=== PATIENT | female | born 1935 | race Caucasian/White ===

== ENCOUNTER → 2018-03-31 | Outpatient (CLI) | payer MEDICARE, OTHER ==
[~2018-03-31] MED LIST: B12 PO; CALC-112 PO; CHOL100012 PO; CLOP75TA PO; DONE10TA14 PO; ESCI10TA10 PO; ESOM40CA PO; ESTRACE CREAM TP; FLUT15.88 NAS; FLUT1DIS3 INH; HYDR-3307 PO; LEVO5TAB29 PO; MIRA50TA PO; MOME17SP NAS; MULT-658 PO; OMEG1CAP23 PO; PANT40TA5 PO; REGADENOSON 0.4 MG/5 ML SYRINGE ONE; TIOT18CA INH; TRAV5DRO OP
== END ==
LOC: CFH 12:14
PROVIDERS: ATTEND Internal Medicine Cardiovascular Disease
DX: Z01.818 Encounter for other preprocedural examination (principal); I10 Essential (primary) hypertension
CPT/HCPCS: 78452; 93017; A9502; J2785

== ENCOUNTER → 2018-05-18 | Outpatient (CLI) | payer MEDICARE, OTHER ==
[~2018-05-18] MED LIST changes: +ASCO-96 PO; -REGADENOSON 0.4 MG/5 ML SYRINGE ONE; +ROSU5TAB PO; +VITA150T PO
[2018-05-18 12:03] LABS: MICROSCOPIC NOT IND
[2018-05-18 12:05] LABS: ANION GAP 4 mmol/L (5-15); CALCIUM 8.7 mg/dL (8.5-10.1); CHLORIDE 107 mmol/L (98-107); CREATININE 0.88 mg/dL (0.55-1.02)
[2018-05-18 12:07] LABS: BASOPHILS # (AUTO) 0.04 x10^3/uL (0-0.1); BASOPHILS % (AUTO) 1 % (0-1); EOSINOPHILS # (AUTO) 0.21 x10^3/uL (0-0.4); EOSINOPHILS % (AUTO) 3 % (1-7); LYMPHOCYTES # (AUTO) 1.37 x10^3/uL (1-3.4); LYMPHOCYTES % (AUTO) 22 % (22-44); MD NO; MEAN CORPUSCULAR HEMOGLOBIN 34.2 pg (27.0-34.8); MEAN CORPUSCULAR HGB CONC 33.9 g/dL (32.4-35.8); MEAN PLATELET VOLUME 8.7 fL (7.4-10.4); MONOCYTES # (AUTO) 0.57 x10^3/uL (0.2-0.8); MONOCYTES % (AUTO) 9 % (2-9); NEUTROPHILS # (AUTO) 4.08 x10^3/uL (1.8-6.8); NEUTROPHILS % (AUTO) 65 % (42-75); PLATELET COUNT 197 x10^3/uL (130-400); RED BLOOD COUNT 3.98 x10^6/uL (3.82-5.3); RED CELL DISTRIBUTION WIDTH 13.5 % (9.6-15.2)
[2018-05-18 12:28] LABS: CULTURE INDICATED? NO
== END | disposition home or self-care (01) ==
LOC: STAR 10:35
PROVIDERS: ATTEND Orthopaedic Surgery
DX: Z01.818 Encounter for other preprocedural examination (principal); M17.11 Unilateral primary osteoarthritis, right knee
CPT/HCPCS: 36415; 80048; 81003; 85025; 87081; 93005

== ENCOUNTER 2018-05-26 08:51 | Inpatient (IN) | payer MEDICARE, OTHER ==
[~2018-05-26] VITALS: Ht 154.9 cm; Wt 73.5 kg
[~2018-05-26 08:51] MED LIST changes: +FENTANYL PF 100 MCG/2ML ONE; +MIDAZOLAM 1 MG/ML, 2ML ONE
[2018-05-26] MEDS ORDERED: LACTATED RINGERS 1,000 ML IV SCH (09:45)
[2018-05-26] MEDS ORDERED: CLOP75TA52 PO (09:53)
[2018-05-26] MEDS ORDERED: LIDOCAINE-MPF 1%, 2ML INFIL ONE (10:00)
[2018-05-26] MEDS ORDERED: ACETAMINOPHEN 500 MG TABLET PO ONE (10:00)
[2018-05-26] MEDS ORDERED: ONDANSETRON ODT 8 MG PO ONE (10:00)
[2018-05-26] MEDS ORDERED: TAMSULOSIN 0.4 MG CAP.ER.24H PO ONE (10:00)
[2018-05-26] MEDS ORDERED: TRANEXAMIC ACID 100 MG/ML, 10ML ONE (10:42)
[2018-05-26] MEDS ORDERED: KETOROLAC 60 MG/2 ML ONE (10:42)
[2018-05-26] MEDS ORDERED: ROPIvacaine/PF 0.2%, 20 ML ONE (10:42)
[2018-05-26] MEDS ORDERED: EPINEPHRINE 1 MG/ML, 1ML ONE (10:43)
[2018-05-26] MEDS ORDERED: SODIUM CHLORIDE 0.9% 100 ML ONE (10:43)
[2018-05-26] MEDS ORDERED: VANCOMYCIN 1,000 MG ONE (10:43)
[2018-05-26] MEDS ORDERED: PREGABALIN 150 MG CAPSULE ONE (10:56)
[2018-05-26] MEDS ORDERED: PREGABALIN 150 MG CAPSULE PO ONE (11:00)
[2018-05-26] MEDS ORDERED: LABETALOL 5MG/ML 40ML VIAL ONE (11:16)
[2018-05-26] MEDS ORDERED: FENTANYL PF 100 MCG/2ML ONE ×2 (11:42→13:47)
[2018-05-26] MEDS ORDERED: LABETALOL 5MG/ML, 20ML IV PRN (12:00)
[2018-05-26] MEDS ORDERED: EPHEDRINE 50 MG/ML, 1ML IM PRN (12:00)
[2018-05-26] MEDS ORDERED: OXYcodone 5 MG/5 ML ORAL.SOL UDC PO PRN (12:00)
[2018-05-26] MEDS ORDERED: ALBUTEROL/IPRATROPIUM 2.5MG/0.5MG, 3 ML NPPB PRN (12:00)
[2018-05-26] MEDS ORDERED: PROMETHAZINE 25 MG/ML, 1ML IV PRN (12:00)
[2018-05-26] MEDS ORDERED: ONDANSETRON ODT 8 MG PO PRN (12:00)
[2018-05-26] MEDS ORDERED: MIDAZOLAM 1 MG/ML, 2ML IV PRN (12:00)
[2018-05-26] MEDS ORDERED: HYDROmorphone 1 MG/ML, 1ML IV PRN ×2 (12:00→13:00)
[2018-05-26] MEDS ORDERED: hydrALAzine 20 MG/ML, 1ML IV PRN (12:00)
[2018-05-26] MEDS ORDERED: FENTANYL PF 100 MCG/2ML IV PRN (12:00)
[2018-05-26] MEDS ORDERED: DEXAMETHASONE 4 MG/ML, 1ML ONE (12:10)
[2018-05-26] MEDS ORDERED: ROPIvacaine/PF 0.5%, 30 ML ONE (12:10)
[2018-05-26] MEDS ORDERED: CEFAZOLIN 1,000 MG ONE (12:10)
[2018-05-26] MEDS ORDERED: ONDANSETRON 2MG/ML, 2ML ONE (12:10)
[2018-05-26] MEDS ORDERED: BUPIVACAINE/PF 0.25% ONE (12:10)
[2018-05-26] MEDS ORDERED: PROPOFOL 10 MG/ML, 20ML ONE (12:10)
[2018-05-26] MEDS ORDERED: PROMETHAZINE 12.5 MG SUPP PR PRN (13:00)
[2018-05-26] MEDS ORDERED: PROMETHAZINE 25 MG/ML, 1ML IM PRN (13:00)
[2018-05-26] MEDS ORDERED: ONDANSETRON 4 MG TABLET PO PRN (13:00)
[2018-05-26] MEDS ORDERED: TRANEXAMIC ACID 1,000 MG in SODIUM CHLORIDE 0.9% 100 ML IVPB ONE (13:00)
[2018-05-26] MEDS ORDERED: HYDROcodone/APAP 5/325 TABLET PO PRN (13:00)
[2018-05-26] MEDS ORDERED: MAGNESIUM HYDROXIDE 8%, 30ML UDC PO PRN (13:00)
[2018-05-26] MEDS ORDERED: BISACODYL 10 MG SUPP PR PRN (13:00)
[2018-05-26] MEDS ORDERED: ALUMINUM/MAG/SIMETHICONE 30 ML UDC PO PRN (13:00)
[2018-05-26] MEDS ORDERED: DIPHENHYDRAMINE 50 MG CAPSULE PO PRN (13:00)
[2018-05-26] MEDS: ACETAMINOPHEN 650 MG/20.3 ML UDC PO SCH ×2 (13:00→20:58)
[2018-05-26] MEDS ORDERED: ONDANSETRON 2MG/ML, 2ML IV PRN (13:00)
[2018-05-26] MEDS ORDERED: SENNA/DOCUSATE TABLET PO PRN (13:00)
[2018-05-26] MEDS ORDERED: MORPHINE SULFATE 4 MG/ML, 1ML ONE ×2 (13:08→13:47)
[2018-05-26] MEDS ORDERED: OXYcodone 5 MG/5 ML ORAL.SOL UDC ONE (13:08)
[2018-05-26] MEDS: MORPHINE SULFATE 4 MG/ML, 1ML IVPush PRN ×2 (13:10→13:50)
[2018-05-26] MEDS: IPRATROPIUM 0.5 MG/2.5 ML INHA NPPB SCH ×2 (16:00→21:00)
[2018-05-26] MEDS: ASPIRIN 81 MG TABLET EC PO SCH (18:00)
[2018-05-26] MEDS: D5%-0.45% NACL 1,000 ML IV SCH ×2 (18:10→23:51)
[2018-05-26] MEDS ORDERED: SODIUM CHLORIDE 0.9%, 500ML IVBOLUS ONE (19:00)
[2018-05-26 20:00] VITALS: BP 105/60
[2018-05-26] MEDS: DOCUSATE 100 MG CAPSULE PO SCH (20:57)
[2018-05-26] MEDS: CEFAZOLIN PMX 1GM/50ML 50 ML IVPB SCH (20:57)
[2018-05-26] MEDS: ATORVASTATIN 10 MG TABLET PO SCH (20:57)
[2018-05-27] VITALS: BP 107/65
[2018-05-27 04:00] VITALS: BP 107/65
[2018-05-27] MEDS: CEFAZOLIN PMX 1GM/50ML 50 ML IVPB SCH (04:43)
[2018-05-27] MEDS: ACETAMINOPHEN 650 MG/20.3 ML UDC PO SCH ×3 (05:19→23:51)
[2018-05-27 05:57] LABS: ALBUMIN 3.1 g/dL (3.4-5.0); ANION GAP 6 mmol/L (5-15); CALCIUM 7.9 mg/dL (8.5-10.1); CHLORIDE 108 mmol/L (98-107)
[2018-05-27] MEDS ORDERED: DEXAMETHASONE 4 MG/ML, 1ML IVPush SCH (06:00)
[2018-05-27] MEDS: ASPIRIN 81 MG TABLET EC PO SCH ×2 (06:00→08:41)
[2018-05-27] MEDS: IPRATROPIUM 0.5 MG/2.5 ML INHA NPPB SCH ×4 (06:00→21:00)
[2018-05-27] MEDS ORDERED: HYDROmorphone 2 MG/ML, 1ML IV PRN (08:00)
[2018-05-27] MEDS: PANTOPROZOLE 40MG TABLET PO SCH ×2 (08:39→08:43)
[2018-05-27] MEDS: TAMSULOSIN 0.4 MG CAP.ER.24H PO SCH (08:40)
[2018-05-27] MEDS: CITALOPRAM 20 MG TABLET PO SCH (08:40)
[2018-05-27] MEDS: DOCUSATE 100 MG CAPSULE PO SCH ×2 (08:40→23:46)
[2018-05-27] MEDS: CLOPIDOGREL 75 MG TABLET PO SCH (08:41)
[2018-05-27] MEDS: Mirabegron** (Myrbetriq**) 50 MG) PO SCH (08:41)
[2018-05-27] MEDS: FLUTICASONE NASAL SPRAY 16GM NAS SCH (08:41)
[2018-05-27] MEDS: FLUTICASONE/VILANTEROL 200-25MCG/INH INH SCH (08:41)
[2018-05-27] MEDS: MIRABEGRON 50 MG HOMEMEDPO SCH (08:42)
[2018-05-27] MEDS: LEVOCETIRIZINE DIHYDROCHLORIDE 5 MG HOMEMEDPO SCH (08:42)
[2018-05-27] MEDS ORDERED: CITALOPRAM 20 MG TABLET PO SCH (09:00)
[2018-05-27] MEDS ORDERED: FLUTICASONE NASAL SPRAY 16GM NAS SCH (09:00)
[2018-05-27] MEDS ORDERED: FLUTICASONE/VILANTEROL 100-25MCG/INH INH SCH (09:00)
[2018-05-27] MEDS ORDERED: CLOPIDOGREL 75 MG TABLET PO SCH (09:00)
[2018-05-27] MEDS ORDERED: TEMPLATE NON-FORMULARY MED. (Tiotropium Bromide** (Spiriva**) 18 MCG) INH SCH (09:00)
[2018-05-27 09:18] VITALS: BP 118/68
[2018-05-27] MEDS: D5%-0.45% NACL 1,000 ML IV SCH (10:57)
[2018-05-27 12:24] VITALS: BP 114/67
[2018-05-27 19:55] VITALS: BP 122/60
[2018-05-27] MEDS ORDERED: TEMPLATE NON-FORMULARY MED. (Rosuvastatin Calcium** (Crestor**) 5 MG) PO SCH (21:00)
[2018-05-27] MEDS: ATORVASTATIN 10 MG TABLET PO SCH (23:46)
[2018-05-28] MEDS: D5%-0.45% NACL 1,000 ML IV SCH ×3 (00:06→23:53)
[2018-05-28 01:00] VITALS: BP 122/63
[2018-05-28] MEDS: IPRATROPIUM 0.5 MG/2.5 ML INHA NPPB SCH ×4 (06:00→21:00)
[2018-05-28] MEDS: ACETAMINOPHEN 650 MG/20.3 ML UDC PO SCH ×3 (06:22→23:21)
[2018-05-28] MEDS: ASPIRIN 81 MG TABLET EC PO SCH ×2 (06:22→18:17)
[2018-05-28 06:37] VITALS: BP 110/62
[2018-05-28] MEDS: FLUTICASONE NASAL SPRAY 16GM NAS SCH (08:12)
[2018-05-28] MEDS: DOCUSATE 100 MG CAPSULE PO SCH ×2 (08:12→23:18)
[2018-05-28] MEDS: CITALOPRAM 20 MG TABLET PO SCH (08:12)
[2018-05-28] MEDS: CLOPIDOGREL 75 MG TABLET PO SCH (08:12)
[2018-05-28] MEDS: TAMSULOSIN 0.4 MG CAP.ER.24H PO SCH (08:13)
[2018-05-28] MEDS: PANTOPROZOLE 40MG TABLET PO SCH ×2 (08:13→08:15)
[2018-05-28] MEDS: LEVOCETIRIZINE DIHYDROCHLORIDE 5 MG HOMEMEDPO SCH (08:14)
[2018-05-28] MEDS: MIRABEGRON 50 MG HOMEMEDPO SCH (08:15)
[2018-05-28] MEDS: FLUTICASONE/VILANTEROL 200-25MCG/INH INH SCH (08:15)
[2018-05-28] MEDS: Mirabegron** (Myrbetriq**) 50 MG) PO SCH (08:15)
[2018-05-28] MEDS ORDERED: OXYC5CAP2 PO (10:15)
[2018-05-28] MEDS ORDERED: ASPI-621 PO (10:15)
[2018-05-28] MEDS ORDERED: ACET-1600 PO (10:15)
[2018-05-28 12:49] LABS: MICROSCOPIC NOT IND
[2018-05-28 12:51] LABS: CULTURE INDICATED? NO
[2018-05-28 13:47] VITALS: BP 105/58
[2018-05-28 19:50] VITALS: BP 166/71
[2018-05-28] MEDS: ATORVASTATIN 10 MG TABLET PO SCH (23:18)
[2018-05-29 01:10] VITALS: BP 131/67
[2018-05-29] MEDS: ACETAMINOPHEN 650 MG/20.3 ML UDC PO SCH (06:37)
[2018-05-29] MEDS: ASPIRIN 81 MG TABLET EC PO SCH (06:37)
[2018-05-29 06:50] VITALS: BP 121/75
[2018-05-29] MEDS: IPRATROPIUM 0.5 MG/2.5 ML INHA NPPB SCH ×2 (07:02→11:43)
[2018-05-29] MEDS: Mirabegron** (Myrbetriq**) 50 MG) PO SCH (08:16)
[2018-05-29] MEDS: MIRABEGRON 50 MG HOMEMEDPO SCH (08:16)
[2018-05-29] MEDS: LEVOCETIRIZINE DIHYDROCHLORIDE 5 MG HOMEMEDPO SCH (08:16)
[2018-05-29] MEDS: PANTOPROZOLE 40MG TABLET PO SCH ×2 (08:17→08:54)
[2018-05-29] MEDS: CITALOPRAM 20 MG TABLET PO SCH (08:54)
[2018-05-29] MEDS: DOCUSATE 100 MG CAPSULE PO SCH (08:55)
[2018-05-29] MEDS: TAMSULOSIN 0.4 MG CAP.ER.24H PO SCH (08:55)
[2018-05-29] MEDS: CLOPIDOGREL 75 MG TABLET PO SCH (08:55)
[2018-05-29] MEDS: D5%-0.45% NACL 1,000 ML IV SCH (10:36)
[2018-05-29] MEDS: FLUTICASONE/VILANTEROL 200-25MCG/INH INH SCH (10:36)
[2018-05-29] MEDS: FLUTICASONE NASAL SPRAY 16GM NAS SCH (10:36)
[2018-05-29 12:33] VITALS: BP 102/55
== END 2018-05-29 13:29 | DRG 469 ==
LOC: OUT 08:51 → ORIP 12:44 → 4NOR 14:50
PROVIDERS: ADMIT Orthopaedic Surgery; ATTEND Orthopaedic Surgery
PROC: 0T9B70Z Drainage of Bladder with Drainage Device, Via Natural or Artificial Opening (ICD-10-PCS; 2018-05-26)
PROC: 0SRC0J9 Replacement of Right Knee Joint with Synthetic Substitute, Cemented, Open Approach (ICD-10-PCS; principal; 2018-05-26 12:00)
DX: M17.11 Unilateral primary osteoarthritis, right knee (principal); J96.21 Acute and chronic respiratory failure with hypoxia; K21.9 Gastro-esophageal reflux disease without esophagitis; E78.5 Hyperlipidemia, unspecified; M21.061 Valgus deformity, not elsewhere classified, right knee; F32.9 Major depressive disorder, single episode, unspecified; J45.909 Unspecified asthma, uncomplicated; Z60.2 Problems related to living alone; Z86.73 Personal history of transient ischemic attack (TIA), and cerebral infarction without residual deficits; Z87.891 Personal history of nicotine dependence; Z88.6 Allergy status to analgesic agent; Z88.1 Allergy status to other antibiotic agents; Z88.8 Allergy status to other drugs, medicaments and biological substances
CPT/HCPCS: 36415; 80048; 81003; 82040; 85018; C1713; J0171; J0690; J1100; J1170; J1885; J2250; J2405; J2704; J2795; J3010; J3370; J3490; Q0162; C1776; J7040; J7120

== ENCOUNTER → 2019-12-28 | Outpatient (CLI) | payer MEDICARE, OTHER ==
[~2019-12-28] MED LIST changes: +ACET-1600 PO; +ALBU2.5V NPPB; +ASPI81TA45 PO; +AZIT500T PO; +CALCIUM; +CEFT2PIG2 IV; +CHOL10003 PO; +CLOP75TA52 PO; +DONE10TA56 PO; -FENTANYL PF 100 MCG/2ML ONE; +FLUT15.845 NAS; -FLUT15.88 NAS; -HYDR-3307 PO; +HYDR-36 PO; +IPRA0.2S35 NPPB; +LACT1CAP35 PO; +LACT1CAP44 PO; -MIDAZOLAM 1 MG/ML, 2ML ONE; +OXYC5CAP2 PO; +PRED5TAB PO; +VITA1CAP PO
== END | disposition home or self-care (01) ==
LOC: RAD 10:32
PROVIDERS: ATTEND Physician Assistant
DX: K21.9 Gastro-esophageal reflux disease without esophagitis (principal); K58.9 Irritable bowel syndrome, unspecified; R15.9 Full incontinence of feces; Z88.8 Allergy status to other drugs, medicaments and biological substances; Z88.2 Allergy status to sulfonamides; Z88.1 Allergy status to other antibiotic agents; Z88.6 Allergy status to analgesic agent
CPT/HCPCS: 74230

== ENCOUNTER 2020-06-21 10:42 | Outpatient (CLI) | payer MEDICARE, OTHER ==
[~2020-06-21 10:42] MED LIST changes: +HYDR-3246 PO; -HYDR-36 PO; -PANT40TA5 PO; +PANT40TA6 PO
[2020-06-21] MEDS ORDERED: SINCALIDE (KINEVAC) 5 MCG ONE (11:37)
[2020-06-21] MEDS ORDERED: [UNRECOGNIZED DRUG - OTHER] EACHEYE (21:07)
[2020-06-21] MEDS ORDERED: FLUT9.9S PO (21:07)
[2020-06-21] MEDS ORDERED: FAMO20TA7 PO (21:07)
[2020-06-21] MEDS ORDERED: TIMOLOL LEFTEYE (21:07)
[2020-06-21] MEDS ORDERED: [UNRECOGNIZED DRUG - CODE] PO (21:07)
[2020-06-21] MEDS ORDERED: SPIRIVA PO (21:07)
[2020-06-21] MEDS ORDERED: FLUT1DIS3 INH (21:07)
[2020-07-24] MEDS ORDERED: RIVA15TA PO (16:39)
[2020-07-24] MEDS ORDERED: HYDR25TA6 PO (16:39)
[2020-07-24] MEDS ORDERED: PANT40TA3 PO (16:39)
[2020-07-27] MEDS ORDERED: TRAM50TA2 PO (12:49)
[2020-07-27] MEDS ORDERED: ACET325T26 PO (12:49)
[2020-07-27] MEDS ORDERED: AMLO-150 PO (12:49)
[2020-07-27] MEDS ORDERED: CEFU250T66 PO (12:49)
== END 2020-06-21 23:59 | disposition home or self-care (01) ==
LOC: RAD 10:42
PROVIDERS: ATTEND Internal Medicine Gastroenterology
DX: R10.13 Epigastric pain (principal)
CPT/HCPCS: 78227; A9537; J2805

== ENCOUNTER 2020-06-21 19:59 | Inpatient (IN) | payer MEDICARE, OTHER ==
[~2020-06-21] VITALS: Ht 154.9 cm; Wt 66.7 kg
--- NOTE | 2020-06-21 20:50 | NUR ---
PT C/O DIARRHEA SINCE THURSDAY, NO BLOOD AND DARK STOOLS, BUT PER FAMILY PT HAS BEEN WEAK. PT REPORTS NAUSEA BUT DENIES N/V.
[2020-06-21 20:59] LABS: BASOPHILS # (AUTO) 0.02 x10^3/uL (0-0.1); BASOPHILS % (AUTO) 0 % (0-1); EOSINOPHILS # (AUTO) 0.05 x10^3/uL (0-0.4); EOSINOPHILS % (AUTO) 1 % (1-7); LYMPHOCYTES # (AUTO) 1.33 x10^3/uL (1-3.4); LYMPHOCYTES % (AUTO) 13 % (22-44); MD NO; MEAN CORPUSCULAR HEMOGLOBIN 34.3 pg (27.0-34.8); MEAN CORPUSCULAR HGB CONC 33.4 g/dL (32.4-35.8); MEAN PLATELET VOLUME 8.7 fL (7.4-10.4); MONOCYTES % (AUTO) 8 % (2-9); NEUTROPHILS # (AUTO) 7.83 x10^3/uL (1.8-6.8); NEUTROPHILS % (AUTO) 78 % (42-75); PLATELET COUNT 203 x10^3/uL (130-400); RED BLOOD COUNT 3.97 x10^6/uL (3.82-5.3)
[2020-06-21] MEDS ORDERED: SODIUM CHLORIDE 0.9% 1,000ML IVBOLUS ONE (21:00)
[2020-06-21] MEDS ORDERED: FAMO20TA7 PO (21:07)
[2020-06-21] MEDS ORDERED: SPIRIVA PO (21:07)
[2020-06-21] MEDS ORDERED: FLUT9.9S PO (21:07)
[2020-06-21] MEDS ORDERED: TIMOLOL LEFTEYE (21:07)
[2020-06-21] MEDS ORDERED: [UNRECOGNIZED DRUG - OTHER] EACHEYE (21:07)
[2020-06-21] MEDS ORDERED: FLUT1DIS3 INH (21:07)
[2020-06-21] MEDS ORDERED: [UNRECOGNIZED DRUG - CODE] PO (21:07)
[2020-06-21 21:10] LABS: ALANINE AMINOTRANSFERASE 14 U/L (12-78); ALBUMIN 3.9 g/dL (3.4-5.0); ANION GAP 7 mmol/L (5-15); CALCIUM 8.7 mg/dL (8.5-10.1); CHLORIDE 108 mmol/L (98-107); CREATININE 0.94 mg/dL (0.55-1.02)
[2020-06-21 21:14] LABS: ALKALINE PHOSPHATASE 53 U/L (45-117); BILIRUBIN,TOTAL 0.6 mg/dL (0.2-1.0); TOTAL PROTEIN 7.1 g/dL (6.4-8.2); TROPONIN I < 0.015 ng/mL (0.000-0.045)
--- NOTE | 2020-06-21 21:38 | NUR ---
PT IN CT.
[2020-06-21] MEDS ORDERED: OMNIPAQUE 350 MG/ML, 100ML BOTTLE ONE (21:53)
--- NOTE | 2020-06-21 22:00 | NUR ---
REPORT TO JIMY Corcoran RN.
[2020-06-21] MEDS ORDERED: SODIUM CHLORIDE 0.9% 1,000 ML IV ONE (22:28)
[2020-06-21] MEDS ORDERED: PIPERACILLIN/TAZO/PMX 3.375GM 50 ML IVPB ONE (22:30)
[2020-06-21] MEDS ORDERED: ONDANSETRON 2MG/ML, 2ML IVPush PRN ×2 (22:30→23:30)
[2020-06-21] MEDS ORDERED: MORPHINE SULFATE 4 MG/ML, 1ML IVPush PRN (22:30)
[2020-06-21] MEDS ORDERED: PIPERACILLIN/TAZO/PMX 3.375GM 50 ML ONE (23:11)
[2020-06-21] MEDS ORDERED: hydrALAzine 20 MG/ML, 1ML IVPush PRN (23:30)
[2020-06-21] MEDS ORDERED: MELATONIN 5 MG TABLET PO PRN (23:30)
[2020-06-21] MEDS ORDERED: ACETAMINOPHEN 325 MG TABLET PO PRN (23:30)
[2020-06-21] MEDS ORDERED: morphine SULFATE 10 MG/ML, 1ML IVPush PRN (23:30)
[2020-06-21] MEDS ORDERED: ONDANSETRON ODT 4 MG PO PRN (23:30)
[2020-06-21] MEDS ORDERED: ENALAPRILAT 1.25 MG/ML, 2ML IVPush PRN (23:30)
[2020-06-22] MEDS: CEFTRIAXONE PMX 1GM/50ML 50 ML IV SCH
[2020-06-22] MEDS ORDERED: CEFTRIAXONE PMX 1GM/50ML 50 ML ONE (00:13)
[2020-06-22 00:37] VITALS: BP 134/71
[2020-06-22] MEDS: METRONIDAZOLE PMX 500MG/100ML 100 ML IV SCH ×3 (01:20→17:27)
[2020-06-22] MEDS: LACTATED RINGERS 1,000 ML IV SCH ×2 (02:18→12:11)
[2020-06-22] MEDS ORDERED: ALBUTEROL HFA 90 MCG/SPRAY INH PRN (03:00)
[2020-06-22 04:52] LABS: ANION GAP 6 mmol/L (5-15); CALCIUM 7.6 mg/dL (8.5-10.1); CHLORIDE 111 mmol/L (98-107)
[2020-06-22 04:53] LABS: BASOPHILS # (AUTO) 0.01 x10^3/uL (0-0.1); BASOPHILS % (AUTO) 0 % (0-1); EOSINOPHILS # (AUTO) 0.03 x10^3/uL (0-0.4); EOSINOPHILS % (AUTO) 1 % (1-7); LYMPHOCYTES # (AUTO) 0.77 x10^3/uL (1-3.4); LYMPHOCYTES % (AUTO) 11 % (22-44); MD NO; MEAN CORPUSCULAR HEMOGLOBIN 34.4 pg (27.0-34.8); MEAN CORPUSCULAR HGB CONC 33.2 g/dL (32.4-35.8); MEAN PLATELET VOLUME 8.4 fL (7.4-10.4); MONOCYTES # (AUTO) 0.55 x10^3/uL (0.2-0.8); MONOCYTES % (AUTO) 8 % (2-9); NEUTROPHILS # (AUTO) 5.95 x10^3/uL (1.8-6.8); NEUTROPHILS % (AUTO) 81 % (42-75); PLATELET COUNT 155 x10^3/uL (130-400); RED BLOOD COUNT 3.32 x10^6/uL (3.82-5.3)
[2020-06-22 04:54] LABS: CREATININE 0.75 mg/dL (0.55-1.02)
[2020-06-22 06:01] LABS: CLOSTRIDIUM DIFFICILE ANTIGEN NEGATIVE; CLOSTRIDIUM DIFFICILE TOXIN NEGATIVE (Negative)
[2020-06-22] MEDS: ALBUTEROL-IPRATROPIUM MDI INH INH SCH ×4 (06:14→20:42)
[2020-06-22] MEDS ORDERED: IPRATROPIUM 0.5 MG/2.5 ML INHA NPPB SCH (07:00)
[2020-06-22 08:00] VITALS: BP 125/59
[2020-06-22] MEDS: FLUTICASONE/VILANTEROL 100-25MCG/INH INH SCH (09:00)
[2020-06-22] MEDS: TIMOLOL OPHTH 0.25%, 5ML LEFTEYE SCH (09:00)
[2020-06-22] MEDS: CLOPIDOGREL 75 MG TABLET PO SCH (09:30)
[2020-06-22] MEDS: FAMOTIDINE 20 MG TABLET PO SCH ×2 (09:30→20:42)
[2020-06-22] MEDS: ESCITALOPRAM 10MG TABLET PO SCH (09:30)
[2020-06-22] MEDS: ENOXAPARIN 40 MG/0.4 ML SQ SCH (12:42)
[2020-06-22 13:03] LABS: MICROSCOPIC INDICATED
[2020-06-22 13:23] VITALS: BP 128/52
[2020-06-22 18:56] VITALS: BP 123/51
[2020-06-22] MEDS: DONEPEZIL 10 MG TABLET PO SCH (20:42)
[2020-06-22] MEDS: TRAVOPROST OPHTH 0.004%, 2.5ML EACHEYE SCH (21:29)
[2020-06-23 00:08] VITALS: BP 127/54
[2020-06-23] MEDS: CEFTRIAXONE PMX 1GM/50ML 50 ML IV SCH (00:08)
[2020-06-23] MEDS: METRONIDAZOLE PMX 500MG/100ML 100 ML IV SCH ×3 (01:25→17:46)
[2020-06-23] MEDS: LACTATED RINGERS 1,000 ML IV SCH (02:09)
[2020-06-23 05:36] LABS: BASOPHILS # (AUTO) 0.03 x10^3/uL (0-0.1); BASOPHILS % (AUTO) 1 % (0-1); EOSINOPHILS # (AUTO) 0.18 x10^3/uL (0-0.4); EOSINOPHILS % (AUTO) 4 % (1-7); LYMPHOCYTES # (AUTO) 1.01 x10^3/uL (1-3.4); LYMPHOCYTES % (AUTO) 22 % (22-44); MD NO; MEAN CORPUSCULAR HEMOGLOBIN 34.1 pg (27.0-34.8); MEAN CORPUSCULAR HGB CONC 32.7 g/dL (32.4-35.8); MEAN PLATELET VOLUME 8.6 fL (7.4-10.4); MONOCYTES # (AUTO) 0.35 x10^3/uL (0.2-0.8); MONOCYTES % (AUTO) 8 % (2-9); NEUTROPHILS # (AUTO) 3.04 x10^3/uL (1.8-6.8); NEUTROPHILS % (AUTO) 66 % (42-75); PLATELET COUNT 166 x10^3/uL (130-400); RED CELL DISTRIBUTION WIDTH 14.1 % (9.6-15.2)
[2020-06-23 05:40] LABS: ALANINE AMINOTRANSFERASE 10 U/L (12-78); ALBUMIN 2.5 g/dL (3.4-5.0); ANION GAP 6 mmol/L (5-15); CALCIUM 8.1 mg/dL (8.5-10.1); CHLORIDE 112 mmol/L (98-107); CREATININE 0.65 mg/dL (0.55-1.02)
[2020-06-23 05:42] LABS: ALKALINE PHOSPHATASE 38 U/L (45-117); BILIRUBIN,TOTAL 0.3 mg/dL (0.2-1.0); TOTAL PROTEIN 5.2 g/dL (6.4-8.2)
[2020-06-23] MEDS: ALBUTEROL-IPRATROPIUM MDI INH INH SCH ×4 (06:00→20:42)
[2020-06-23 07:25] VITALS: BP 136/51
[2020-06-23] MEDS: ESCITALOPRAM 10MG TABLET PO SCH (08:31)
[2020-06-23] MEDS: CLOPIDOGREL 75 MG TABLET PO SCH (08:31)
[2020-06-23] MEDS: FAMOTIDINE 20 MG TABLET PO SCH ×2 (08:31→20:41)
[2020-06-23] MEDS: FLUTICASONE/VILANTEROL 100-25MCG/INH INH SCH (08:32)
[2020-06-23] MEDS: TIMOLOL OPHTH 0.25%, 5ML LEFTEYE SCH (08:32)
[2020-06-23] MEDS ORDERED: metroNIDAZOLE 500 MG TABLET PO SCH (09:00)
[2020-06-23] MEDS ORDERED: CEFDINIR 300 MG CAPSULE PO SCH (09:00)
[2020-06-23] MEDS: ENOXAPARIN 40 MG/0.4 ML SQ SCH (12:18)
[2020-06-23 13:31] VITALS: BP 112/65
[2020-06-23 19:36] VITALS: BP 152/83
[2020-06-23] MEDS: TRAVOPROST OPHTH 0.004%, 2.5ML EACHEYE SCH (20:41)
[2020-06-23] MEDS: DONEPEZIL 10 MG TABLET PO SCH (20:41)
[2020-06-24] MEDS ORDERED: CEFTRIAXONE PMX 1GM/50ML 50 ML IV SCH
[2020-06-24 00:30] VITALS: BP 140/65
[2020-06-24] MEDS: METRONIDAZOLE PMX 500MG/100ML 100 ML IV SCH ×2 (01:59→09:14)
[2020-06-24] MEDS: ALBUTEROL-IPRATROPIUM MDI INH INH SCH ×3 (06:01→16:08)
[2020-06-24 06:39] VITALS: BP 158/59
[2020-06-24] MEDS: FLUTICASONE/VILANTEROL 100-25MCG/INH INH SCH (09:00)
[2020-06-24] MEDS: ESCITALOPRAM 10MG TABLET PO SCH (09:13)
[2020-06-24] MEDS: TIMOLOL OPHTH 0.25%, 5ML LEFTEYE SCH (09:13)
[2020-06-24] MEDS: CLOPIDOGREL 75 MG TABLET PO SCH (09:13)
[2020-06-24] MEDS: FAMOTIDINE 20 MG TABLET PO SCH (09:13)
[2020-06-24] MEDS ORDERED: AMLODIPINE 5 MG TABLET PO SCH (09:30)
[2020-06-24] MEDS ORDERED: ACET325T26 PO ×2 (10:55)
[2020-06-24] MEDS ORDERED: AMLO-150 PO ×2 (10:55)
[2020-06-24] MEDS ORDERED: METR500T PO (10:55)
[2020-06-24] MEDS ORDERED: CEFD300C37 PO (10:55)
[2020-06-24] MEDS: ENOXAPARIN 40 MG/0.4 ML SQ SCH (13:30)
[2020-06-24 14:31] VITALS: BP 116/64
[2020-06-24] MEDS ORDERED: DONEPEZIL 10 MG TABLET PO SCH (21:00)
[2020-06-25] MEDS ORDERED: CHOLECALCIFEROL 1,000 UNIT TABLET PO SCH (09:00)
[2020-07-24] MEDS ORDERED: RIVA15TA PO (16:39)
[2020-07-24] MEDS ORDERED: PANT40TA3 PO (16:39)
[2020-07-24] MEDS ORDERED: HYDR25TA6 PO (16:39)
[2020-07-27] MEDS ORDERED: AMLO-150 PO (12:49)
[2020-07-27] MEDS ORDERED: ACET325T26 PO (12:49)
[2020-07-27] MEDS ORDERED: CEFU250T66 PO (12:49)
[2020-07-27] MEDS ORDERED: TRAM50TA2 PO (12:49)
== END 2020-06-24 16:26 | disposition home health service (06) | DRG 372 ==
LOC: ED 22:02 → EDIP 22:28 → 3N 06-22 00:22
PROVIDERS: ADMIT Hospitalist; ATTEND Internal Medicine
DX: A04.9 Bacterial intestinal infection, unspecified (principal); J96.11 Chronic respiratory failure with hypoxia; K52.89 Other specified noninfective gastroenteritis and colitis; E86.0 Dehydration; J44.9 Chronic obstructive pulmonary disease, unspecified; F03.90 Unspecified dementia, unspecified severity, without behavioral disturbance, psychotic disturbance, mood disturbance, and anxiety; G47.33 Obstructive sleep apnea (adult) (pediatric); K21.9 Gastro-esophageal reflux disease without esophagitis; H40.9 Unspecified glaucoma; Z99.81 Dependence on supplemental oxygen; Z90.710 Acquired absence of both cervix and uterus; Z88.6 Allergy status to analgesic agent; Z88.2 Allergy status to sulfonamides; Z88.8 Allergy status to other drugs, medicaments and biological substances; Z80.9 Family history of malignant neoplasm, unspecified; Z82.5 Family history of asthma and other chronic lower respiratory diseases
CPT/HCPCS: 36415; 74177; 78227; 80048; 80053; 81001; 83690; 84484; 85025; 87040; 87086; 87324; 89055; 96361; 96374; 99285; G0378; J0696; J1650; J2543; Q9967; A9537; J2805; J7030; J7120

== ENCOUNTER → 2020-07-03 | Outpatient (CLI) | payer MEDICARE, OTHER ==
[~2020-07-03] MED LIST changes: +ACET325T26 PO; +AMLO-150 PO; +CEFD300C37 PO; +FAMO20TA7 PO; +FLUT9.9S PO; +METR500T PO; +OMNIPAQUE 350 MG/ML, 75ML BOTTLE ONE; +PANT40TA5 PO; -PANT40TA6 PO; +SPIRIVA PO; +TIMOLOL LEFTEYE; +[UNRECOGNIZED DRUG - CODE] PO; +[UNRECOGNIZED DRUG - OTHER] EACHEYE
== END | disposition home or self-care (01) ==
LOC: RAD 16:17
PROVIDERS: ATTEND Internal Medicine Cardiovascular Disease
DX: I82.532 Chronic embolism and thrombosis of left popliteal vein (principal); J84.10 Pulmonary fibrosis, unspecified; R06.02 Shortness of breath
CPT/HCPCS: 71275; 93970; Q9967

== ENCOUNTER 2021-03-11 18:27 | Emergency (ER) | payer MEDICARE, OTHER ==
[~2021-03-11] VITALS: Ht 154.9 cm; Wt 64.2 kg
[~2021-03-11 18:27] MED LIST changes: +CEFU250T66 PO; -HYDR-3246 PO; +HYDR-3248 PO; +HYDR25TA6 PO; -OMNIPAQUE 350 MG/ML, 75ML BOTTLE ONE; +PANT40TA3 PO; -PANT40TA5 PO; +PANT40TA6 PO; +RIVA15TA PO; +TRAM50TA2 PO
[2021-03-11 19:07] LABS: BASOPHILS % (AUTO) 1 % (0-1); EOSINOPHILS % (AUTO) 3 % (1-7); LYMPHOCYTES % (AUTO) 29 % (22-44); MEAN CORPUSCULAR HEMOGLOBIN 34.8 pg (27.0-34.8); MEAN CORPUSCULAR HGB CONC 34.4 g/dL (32.4-35.8); MEAN PLATELET VOLUME 8.3 fL (7.4-10.4); MONOCYTES % (AUTO) 7 % (2-9); NEUTROPHILS % (AUTO) 61 % (42-75); PLATELET COUNT 179 x10^3/uL (130-400); RED BLOOD COUNT 3.86 x10^6/uL (3.82-5.3); RED CELL DISTRIBUTION WIDTH 13.4 % (9.6-15.2)
[2021-03-11 19:09] LABS: MD NO
[2021-03-11 19:18] LABS: ALANINE AMINOTRANSFERASE 20 U/L (12-78); ANION GAP 4 mmol/L (5-15); CALCIUM 9.1 mg/dL (8.5-10.1); CHLORIDE 107 mmol/L (98-107)
[2021-03-11 19:20] LABS: ALKALINE PHOSPHATASE 58 U/L (45-117); BILIRUBIN,TOTAL 0.3 mg/dL (0.2-1.0); TOTAL PROTEIN 6.9 g/dL (6.4-8.2)
--- NOTE | 2021-03-11 20:15 | NUR ---
N/V/D WITH ANY PO INTAKE X 7 DAYS EPIGASTRIC TENDERNESS NO NAUSEA OR PAIN AT THIS TIME VSS ON NIBP/POX ( ROOM AIR 89%^ NOT ABNORMAL W/ COPD USES O2 AT HOME) TO STRAIGHT CATH SHORTLY FOR UA
--- NOTE | 2021-03-11 20:20 | NUR ---
TASK RN. IN AND OUT CATH COLLECTED FOR UA AND WALKED TO LAB.
[2021-03-11 20:29] LABS: MICROSCOPIC NOT IND
--- NOTE | 2021-03-11 21:01 | NUR ---
REPORT TO EDILMA
--- NOTE | 2021-03-11 21:21 | NUR ---
PT RESTING IN BED, VSS, TURNED AND CLEANED, AWAITING CT RESULTS
[2021-03-11] MEDS ORDERED: OMNIPAQUE 350 MG/ML, 100ML BOTTLE ONE (21:23)
[2021-03-11] MEDS ORDERED: metroNIDAZOLE 500 MG TABLET PO ONE (23:00)
[2021-03-11] MEDS ORDERED: CEFDINIR 300 MG CAPSULE PO ONE (23:00)
[2021-03-11] MEDS ORDERED: CEFDINIR 300 MG CAPSULE ONE (23:01)
[2021-03-11] MEDS ORDERED: metroNIDAZOLE 500 MG TABLET ONE (23:01)
[2021-03-11 23:07] VITALS: BP 182/70
== END 2021-03-11 23:22 | disposition home or self-care (01) ==
LOC: ED 20:57
DX: K52.9 Noninfective gastroenteritis and colitis, unspecified (principal); I10 Essential (primary) hypertension; J44.9 Chronic obstructive pulmonary disease, unspecified; Z87.891 Personal history of nicotine dependence
CPT/HCPCS: 36415; 74177; 80053; 81003; 83690; 85025; 99285; Q9967